=== PATIENT | female | born 1950 | race Caucasian/White ===

== ENCOUNTER 2017-04-22 11:52 | Emergency (ER) | payer BC ==
[2017-04-22 12:04] VITALS: TEMP 97.9
[2017-04-22] MEDS ORDERED: NS 1,000 ML IV ONE (15:36)
--- NOTE | 2017-04-22 15:41 | EDPHY ---
H & P Stated Complaint: months of Lback pain numbness /pain/tingling in hands and feet Time Seen by Provider: 04/22/17 15:22 HPI/ROS: CHIEF COMPLAINT: Paresthesias low back pain HISTORY OF PRESENT ILLNESS: Patient is a 67-year-old female with a history of hypertension, depression and GERD who comes to the emergency department complaining of paresthesias and pain in a stocking-glove distribution as well as low back pain. She has had paresthesia and pain in her feet up to mid snow for the last 3-4 months. For over the last 3-4 days however she began having low back pain as well. No bowel or bladder incontinence. No difficulty walking. No loss of strength. She also noticed over the last 2 or 3 days that she had some paresthesias and pain in both hands up to about her wrists. No weakness. No fevers. She does admit to have diarrhea a few days ago but no other recent GI or respiratory infections in the last few months. No immunizations. She denies alcohol abuse. She denies any trauma. REVIEW OF SYSTEMS: Constitutional: denies: chills, fever, recent illness, recent injury EENTM: denies: blurred vision, double vision, nose congestion Respiratory: denies: cough, shortness of breath Cardiac: denies: chest pain, irregular heart rate, lightheadedness, palpitations Gastrointestinal/Abdominal: denies: abdominal pain, diarrhea, nausea, vomiting, blood streaked stools Genitourinary: denies: dysuria, frequency, hematuria, pain Musculoskeletal: denies: joint pain, muscle pain Skin: denies: lesions, rash, jaundice, bruising Neurological: See HPI Hematologic/Lymphatic: denies: blood clots, easy bleeding, easy bruising Immunologic/allergic: denies: HIV/AIDS, transplant EXAM: GENERAL: Well-appearing, well-nourished and in no acute distress. HEAD: Atraumatic, normocephalic. EYES: Pupils equal round and reactive to light, extraocular movements intact, sclera anicteric, conjunctiva are normal. ENT: TMs normal, nares patent, oropharynx clear without exudates. Moist mucous membranes. NECK: Normal range of motion, supple without lymphadenopathy or JVD. LUNGS: Breath sounds clear to auscultation bilaterally and equal. No wheezes rales or rhonchi. HEART: Regular rate and rhythm without murmurs, rubs or gallops. ABDOMEN: Soft, nontender, normoactive bowel sounds. No guarding, no rebound. No masses appreciated. BACK: No CVA tenderness, no spinal tenderness, step-offs or deformities EXTREMITIES: Normal range of motion, no pitting or edema. No clubbing or cyanosis. NEUROLOGICAL: Cranial nerves II through XII grossly intact. Normal speech, normal gait. 5/5 strength, normal movement in all extremities, subjective decreased sensation to light touch. Normal strength. Normal reflexes and cerebellar exam. Ambulates without difficulty PSYCH: Normal mood, normal affect. SKIN: Warm, dry, normal turgor, no visible rashes or lesions. Source: Patient, Family - Personal History Current Tetanus/Diphtheria Vaccine: Yes - Medical/Surgical History Hx Asthma: No Hx Chronic Respiratory Disease: No Hx Diabetes: No Hx Cardiac Disease: No Hx Renal Disease: No Hx Cirrhosis: No Hx Alcoholism: No Hx HIV/AIDS: No Hx Splenectomy or Spleen Trauma: No Other PMH: htn - Family History Significant Family History: No pertinent family hx - Social History Smoking Status: Never smoked Alcohol Use: Sober Drug Use: None Constitutional: Initial Vital Signs Temperature (C) 36.6 C 04/22/17 12:01 Heart Rate 66 04/22/17 12:01 Respiratory Rate 17 04/22/17 12:01 Blood Pressure 168/103 H 04/22/17 12:01 O2 Sat (%) 97 04/22/17 12:01 O2 Delivery Mode Room Air Allergies/Adverse Reactions: sulfamethoxazole [From Bactrim] Allergy (Verified 04/22/17 12:00) trimethoprim [From Bactrim] Allergy (Verified 04/22/17 12:00) Home Medications: Medication Instructions Recorded Ambien 04/22/17 Atenolol 04/22/17 Omeprazole 04/22/17 Prozac 10 MG (*) 04/22/17 Singulair 04/22/17 traZODone 04/22/17 Medical Decision Making - Diagnostics EKG Interpretation: An EKG obtained and was read and documented in trace view. Please see trace view for full reading and report. Sinus rhythm, no acute ischemic changes Imaging Results: Imaging Impressions Lumbar Spine MRI 04/22/17 15:35 Impression: 1. Multilevel degenerative disk disease, as detailed by level above. There is moderate acquired central canal narrowing at L4-L5, and mild to moderate central canal narrowing at L3-L4. No discrete disk prolapse or neural impingement. 2. Diskogenic bone marrow edema at L1-L2 and L4-L5. Associated facet degenerative joint disease at L4-L5 bilaterally. Results called to Dr. Fernando Leyva at 4:40 p.m. ED Course/Re-evaluation: The patient has symptoms consistent with a peripheral neuropathy or possibly vascular disease however her low back pain and leg tingling or concerning. I will obtain an MRI and lab work and re-evaluate. She follows with Dr. Stacy in [place]. 4:40 p.m. we discussed the MRI and lab results which are very reassuring. On repeat evaluation she has a normal objective neurologic evaluation. A this is consistent with a peripheral neuropathy. No sign of diabetes in testing today. Question vascular disease. EKG is reassuring. I will refer her back to her primary for further evaluation as well as to Neurology. She is happy with this and declines further workup or testing at this time. She is asking for a few days off work. Differential Diagnosis: Partial list of the Differential diagnosis considered include but were not limited to; peripheral neuropathy, radiculopathy, and although unlikely based on the history and physical exam, I also considered cauda equina, multiple sclerosis, Guillain-[place], tumor, stroke, dissection, diabetes. I discussed these differential diagnoses and the plan with the patient as well as the usual and expected course. The patient understands that the diagnosis is provisional and that in medicine we are not always correct and that further workup is often warranted. Usual and customary warnings were given. All of the patient's questions were answered. The patient was instructed to return to the emergency department should the symptoms at all worsen or return, otherwise to followup with the physician as we discussed. - Data Points Laboratory Results: Laboratory Results 04/22/17 15:40 04/22/17 15:40 04/22/17 04/22/17 15:40 15:40 WBC 6.57 10^3/uL 10^3/uL (3.80-9.50) RBC 3.91 10^6/uL L 10^6/uL (4.18-5.33) Hgb 12.6 g/dL g/dL (12.6-16.3) Hct 37.8 % L % (38.0-47.0) MCV 96.7 fL fL (81.5-99.8) MCH 32.2 pg pg (27.9-34.1) MCHC 33.3 g/dL g/dL (32.4-36.7) RDW 12.0 % % (11.5-15.2) Plt Count 233 10^3/uL 10^3/uL (150-400) MPV 9.3 fL fL (8.7-11.7) Neut % (Auto) 73.2 % % (39.3-74.2) Lymph % (Auto) 20.1 % % (15.0-45.0) Coffey % (Auto) 5.0 % % (4.5-13.0) Eos % (Auto) 0.6 % % (0.6-7.6) Baso % (Auto) 0.8 % % (0.3-1.7) Nucleat RBC Rel Count 0.0 % % (0.0-0.2) Absolute Neuts (auto) 4.81 10^3/uL 10^3/uL (1.70-6.50) Absolute Lymphs (auto) 1.32 10^3/uL 10^3/uL (1.00-3.00) Absolute Monos (auto) 0.33 10^3/uL 10^3/uL (0.30-0.80) Absolute Eos (auto) 0.04 10^3/uL 10^3/uL (0.03-0.40) Absolute Basos (auto) 0.05 10^3/uL 10^3/uL (0.02-0.10) Absolute Nucleated RBC 0.00 10^3/uL 10^3/uL (0-0.01) Immature Gran % 0.3 % % (0.0-1.1) Immature Gran # 0.02 10^3/uL 10^3/uL (0.00-0.10) Sodium 138 mEq/L mEq/L (134-144) Potassium 4.0 mEq/L mEq/L (3.5-5.2) Chloride 105 mEq/L mEq/L (97-110) Carbon Dioxide 22 mEq/l mEq/l (22-31) Anion Gap 11 mEq/L mEq/L (8-16) BUN 15 mg/dL mg/dL (7-23) Creatinine 0.8 mg/dL mg/dL (0.6-1.0) Estimated GFR > 60 Glucose 93 mg/dL mg/dL (70-100) Calcium 9.0 mg/dL mg/dL (8.5-10.4) Medications Given: Discontinued Medications Sodium Chloride (Ns) 1,000 mls @ 0 mls/hr IV EDNOW ONE; Wide Open PRN Reason: Protocol Stop: 04/22/17 15:37 Last Admin: 04/22/17 16:27 Dose: 1,000 mls Departure - Departure Disposition: Home, Routine, Self-Care Clinical Impression: Paresthesia Condition: Fair Instructions: Paresthesia (ED) Referrals: Jacek Terry MD [Primary Care Provider] - As per Instructions Georgi Bradley MD [Medical Doctor] - As per Instructions Stand Alone Forms: Work Excuse
[2017-04-22 15:58] LABS: % IMMATURE GRANULYOCYTES 0.3 % (0.0-1.1); ABSOLUTE IMMATURE GRANULOCYTES 0.02 10^3/uL (0.00-0.10); ADD DIFF? NO; ADD MORPH? NO; ADD SCAN? NO; ATYPICAL LYMPHOCYTE FLAG 0 (0-99); FRAGMENT RBC FLAG 0 (0-99); HEMATOCRIT 37.8 % (38.0-47.0); HEMOGLOBIN 12.6 g/dL (12.6-16.3); LEFT SHIFT FLG 0 (0-99); LIPEMIA HEMOLYSIS FLAG 80 (0-99); MEAN CELL HEMOGLOBIN 32.2 pg (27.9-34.1); MEAN CELL HEMOGLOBIN CONCENTR. 33.3 g/dL (32.4-36.7); MEAN CELL VOLUME 96.7 fL (81.5-99.8); MEAN PLATELET VOLUME 9.3 fL (8.7-11.7); PLATELET CLUMPS FLAG 0 (0-99); PLATELET COUNT 233 10^3/uL (150-400); RED BLOOD CELL COUNT 3.91 10^6/uL (4.18-5.33)
[2017-04-22 16:09] LABS: ANION GAP 11 mEq/L (8-16); CARBON DIOXIDE 22 mEq/l (22-31); CHLORIDE 105 mEq/L (97-110); CREATININE 0.8 mg/dL (0.6-1.0); GLOMERULAR FILTRATION RATE > 60; GLUCOSE 93 mg/dL (70-100); SODIUM 138 mEq/L (134-144)
[2017-04-22 16:32] VITALS: BP 163/106; PULSE 60; RESP 16; O2SAT 95
--- NOTE | 2017-04-22 16:32 | CPEKG ---
Heart Rate: 55 RR Interval: 1091 P-R Interval: 184 QRSD Interval: 78 QT Interval: 504 QTC Interval: 483 P [place]: 14 QRS [place]: 26 T Wave [place]: 11 EKG Severity - NORMAL ECG - EKG Impression: SINUS RHYTHM Electronically Signed By: Fernando Quintana 22-Apr-2017 16:48:26
== END 2017-04-22 16:57 | disposition home or self-care (01) ==
DX: R20.2 Paresthesia of skin (principal); E86.9 Volume depletion, unspecified; I10 Essential (primary) hypertension

== ENCOUNTER → 2017-05-07 | Day surgery (SDC) | payer BC ==
[~2017-05-07] MED LIST: IOPAMIDOL (ISOVUE-M 300) 15 ML VIAL ONE; LIDOCAINE 1% 300 MG/30 ML SDV ONE; TRIAMCINOLONE ACETONIDE 200 MG/5 ML MDV IM ONE
== END | disposition home or self-care (01) ==
LOC: FIMAGING 13:12
PROVIDERS: ATTEND Family Medicine
DX: M47.26 Other spondylosis with radiculopathy, lumbar region (principal); M51.16 Intervertebral disc disorders with radiculopathy, lumbar region; M48.06 Spinal stenosis, lumbar region
CPT/HCPCS: J3301; Q9967

== ENCOUNTER 2017-12-16 04:01 | Emergency (ER) | payer BC, OTHER ==
[2017-12-16 04:07] VITALS: BP 150/94
[2017-12-16] MEDS ORDERED: HYDROGEN PEROXIDE 473 ML BOTTLE TP ONE (04:17)
--- NOTE | 2017-12-16 04:38 | EDPHY ---
H & P Stated Complaint: head lac-s/p fall Time Seen by Provider: 12/16/17 04:19 HPI/ROS: HPI: The patient presents with head injury which occurred at about 2:45 a.m. This morning. She was out walking the dog in the dark and the dog pulled on the leash in she fell forward, hitting her head on a rock on the underside of the bhatt of her car. She did not lose consciousness. She does not have a headache, nausea, vomiting, dizziness, vision changes, behavioral changes, any weakness of her arms or legs. REVIEW OF SYSTEMS Constitutional: No fever, no chills. Eyes: No discharge. ENT: No sore throat. Cardiovascular: No chest pain, no palpitations. Respiratory: No cough, no shortness of breath. Gastrointestinal: No abdominal pain, no vomiting. Genitourinary: No hematuria. Musculoskeletal: No back pain. Skin: No rashes. Neurological: No headache. PMHx: Hypertension TRAUMA PHYSICAL General Appearance: Alert, no distress Head: 1.5 cm scalp laceration on her parietal right side with no hematoma present Eyes: Pupils equal, round, reactive ENT, Mouth: no oral trauma Neck: Non- tender, trachea midline Respiratory: No chest wall tenderness, no subcutaneous air, lungs clear bilaterallty Cardiovascular: Regular rate and rhythm Abdomen: Abdomen is soft and non-tender, pelvis stable Skin: No lacerations, No abrasion Back: No midline T/L/S pain Extremities: Non-tender, full range of motion Neurological: A&Ox3, GCS=15,normal motor function with 5/5 strength in all 4 extremities, normal sensory exam Source: Patient Exam Limitations: No limitations - Personal History Current Tetanus Diphtheria and Acellular Pertussis (TDAP): Yes - Medical/Surgical History Hx Asthma: No Hx Chronic Respiratory Disease: No Hx Diabetes: No Hx Cardiac Disease: No Hx Renal Disease: No Hx Cirrhosis: No Hx Alcoholism: No Hx HIV/AIDS: No Hx Splenectomy or Spleen Trauma: No Other PMH: htn, , TNA - Social History Smoking Status: Never smoked Constitutional: Initial Vital Signs Temperature (C) 36.6 C 12/16/17 04:06 Heart Rate 71 12/16/17 04:06 Respiratory Rate 18 12/16/17 04:06 Blood Pressure 150/94 H 12/16/17 04:06 O2 Sat (%) 95 12/16/17 04:06 O2 Delivery Mode Room Air Allergies/Adverse Reactions: sulfamethoxazole [From Bactrim] Allergy (Verified 12/16/17 04:05) trimethoprim [From Bactrim] Allergy (Verified 12/16/17 04:05) Home Medications: Medication Instructions Recorded Ambien 04/22/17 Atenolol 04/22/17 Omeprazole 04/22/17 Prozac 10 MG (*) 04/22/17 Singulair 04/22/17 traZODone 04/22/17 Cyclobenzaprine 10 mg PO TID 05/02/17 Diclomax 75 mg PO BID 05/02/17 Hydrocodone Bit/Acetaminophen 05/02/17 Prednisone 20 mg PO BID 05/02/17 Medical Decision Making Procedures: LACERATION REPAIR Procedure: Laceration repair. Verbal consent was obtained from the patient. The linear 1.5 cm laceration on the scalp was anesthetized using lidocaine with epinephrine. The wound was scrubbed, draped and explored to its base with a gloved finger. There were no deep structures involved. No tendon injury was identified. . The wound was repaired with 3 coy. The wound repair was simple. The procedure was performed by myself. Differential Diagnosis: This is a 67-year-old female who presents after a fall while walking her dog in the dark. She has sustained a 1.5 cm scalp laceration. She has not lost consciousness. She does not have a headache, nausea, vomiting, vision changes, behavioral changes, neurologic deficits. Because of this, I do not think CT scan of the head is warranted. Her tetanus vaccine is up-to-date. Coy will be placed and she will be discharged. I have considered concussion, intracranial hemorrhage in my differential. Departure - Departure Disposition: Home, Routine, Self-Care Clinical Impression: Head injury Qualifiers: Encounter type: initial encounter Qualified Code(s): S09.90XA - Unspecified injury of head, initial encounter Scalp laceration Qualifiers: Encounter type: initial encounter Qualified Code(s): S01.01XA - Laceration without foreign body of scalp, initial encounter Condition: Good Instructions: Staple Care (ED) Additional Instructions: The coy in her head should be removed in 10 days. You can come back to the emergency department for this free of charge. You should return immediately if you develop any headache, vomiting, vision changes or are not feeling more self as this could be a sign of serious head injury. Referrals: Jacek Terry MD [Primary Care Provider] - As per Instructions
== END 2017-12-16 04:49 | disposition home or self-care (01) ==
PROC: 0HQ0XZZ Repair Scalp Skin, External Approach (ICD-10-PCS; principal; 2017-12-16)
DX: S01.01XA Laceration without foreign body of scalp, initial encounter (principal); I10 Essential (primary) hypertension; W01.198A Fall on same level from slipping, tripping and stumbling with subsequent striking against other object, initial encounter; Y99.8 Other external cause status; Y93.01 Activity, walking, marching and hiking

== ENCOUNTER → 2018-02-02 | Outpatient (CLI) | payer OTHER | LOC: FIMAGING 14:15 | PROVIDERS: ATTEND Family Medicine | DX: Z12.31 Encounter for screening mammogram for malignant neoplasm of breast (principal) ==

== ENCOUNTER 2018-05-19 13:15 | Day surgery (SDC) | payer OTHER ==
[2018-05-19] MEDS ORDERED: TRIAMCINOLONE ACETONIDE 200 MG/5 ML MDV IM ONE (13:29)
[2018-05-19] MEDS ORDERED: LIDOCAINE 1% 300 MG/30 ML SDV ONE (13:29)
[2018-05-19] MEDS ORDERED: IOPAMIDOL (ISOVUE-M 300) 15 ML VIAL ONE (13:30)
== END 2018-05-19 14:39 | disposition home or self-care (01) ==
LOC: FIMAGING 13:15
PROVIDERS: ATTEND Family Medicine
PROC: 3E0S3BZ Introduction of Anesthetic Agent into Epidural Space, Percutaneous Approach (ICD-10-PCS; principal; 2018-05-19)
PROC: 3E0S33Z Introduction of Anti-inflammatory into Epidural Space, Percutaneous Approach (ICD-10-PCS; principal; 2018-05-19)
DX: M47.26 Other spondylosis with radiculopathy, lumbar region (principal)
CPT/HCPCS: J3301; Q9967